=== PATIENT | female | born 1940 | race Caucasian/White ===

== ENCOUNTER → 2020-06-19 | Outpatient (CLI) | payer MEDICARE, BC ==
[~2020-06-19] MED LIST: METHACHOLINE KIT (J7674) INH ONE
--- NOTE | 2020-06-19 11:35 | PFTRPT ---
Visit Date: 06/19/2020 Referring Doctor: Calin Cagle DO Height: 64.00 Inches Weight: 150.00 Lbs BSA: 1.73 Diagnosis: R06.02 QUALITY: Study of excellent technical quality. PROCEDURE: Under protocol, methacholine was administered. At a dose of 10 mg or 63.75 CDUs a 26% decline in the FEV1 was noted. PC of 4.91 is significant. Flow rates did return to baseline post bronchodilator administration. IMPRESSION: Positive methacholine challenge study. MTDD
== END ==
LOC: M CARPUL 10:28
PROVIDERS: ATTEND Internal Medicine Pulmonary Disease
DX: R06.02 Shortness of breath (principal)
CPT/HCPCS: 94070; 95070; J7674